=== PATIENT | female | born 1975 | race Caucasian/White ===

== ENCOUNTER 2024-08-23 05:52 | Inpatient (IN) ==
[2024-08-23 06:37] LABS: Rapid COVID-19 Molecular Undetected (Undetected)
[2024-08-23] MEDS ORDERED: ceFAZolin 1 GM in Dextrose 1 GM/50 ML BAG ONE (06:53)
[2024-08-23] MEDS ORDERED: Heparin 5000 UNITS/ML 1 mL VIAL ONE (06:53)
[2024-08-23] MEDS ORDERED: ceFAZolin 2 GM PREMIX 2 GM/50 ML BAG ONE (06:53)
[2024-08-23] MEDS ORDERED: Methylene Blue 1% (ANTIDOTE) 10 MG/ML 10 ML SDV VIAL IVPB ONE (07:10)
[2024-08-23] MEDS ORDERED: Bupivacaine 0.25% EPI 200,000 30 ML SDV ONE (07:10)
[2024-08-23] MEDS ORDERED: Midazolam 2 mg/2 ml VIAL 1 mg/ml 2 ml VIAL (2 mg) ONE (07:15)
[2024-08-23] MEDS ORDERED: fentaNYL 100 mcg/2 ml 50 MCG/ML VIAL ONE (07:16)
[2024-08-23] MEDS ORDERED: Rocuronium 50 mg VIAL 10 mg/ml 5 ml VIAL (50 mg) ONE (07:16)
[2024-08-23] MEDS ORDERED: fentaNYL 100 mcg/2 ml 50 MCG/ML VIAL IV PRN (07:51)
[2024-08-23] MEDS ORDERED: Naloxone 0.4 mg VIAL 0.4 mg/ml 1 ml VIAL IV PRN (07:51)
[2024-08-23] MEDS ORDERED: Metoclopramide 5 MG/ML VIAL (10 mg) IV PRN (07:51)
[2024-08-23] MEDS ORDERED: Ondansetron 4 mg VIAL 2 MG/ML 2 ml VIAL IV PRN (07:51)
[2024-08-23] MEDS ORDERED: Ondansetron 4 mg VIAL 2 MG/ML 2 ml VIAL ONE (07:55)
[2024-08-23] MEDS ORDERED: Dexamethasone IV 4 MG/ML VIAL 1 ml VIAL ONE (07:55)
[2024-08-23] MEDS ORDERED: HYDROmorphone 0.5 MG/0.5 ML SYRINGE ONE ×2 (08:13→10:14)
[2024-08-23] MEDS ORDERED: HYDROcodone/ACET. 7.5/325 LIQ 15 ML UDC PO PRN (10:41)
[2024-08-23] MEDS ORDERED: HYDROmorphone 1 MG/1 ML SYRINGE IV SLOW PU PRN (10:48)
[2024-08-23] MEDS: Buffered Lidocaine 1% SYRIN 1 ml INTRADERM ONE (11:27)
[2024-08-23] MEDS: Acetaminophen IV 1 GM/100ML 1,000 MG/100 ML BAG IV ONE (11:27)
[2024-08-23] MEDS: Lactated Ringers 1000 ml BAG 1,000 ML IV SCH ×2 (11:27→11:28)
[2024-08-23] MEDS: Scopolamine 1 mg/72hr PATCH TRANSDERM ONE (11:27)
[2024-08-23] MEDS: Ondansetron 4 mg VIAL 2 MG/ML 2 ml VIAL IV PRN (13:09)
[2024-08-23] MEDS: Heparin 5000 UNITS/ML 1 mL VIAL SUBCUT SCH (13:10)
[2024-08-23] MEDS: Famotidine IV 10 MG/ML 2 ml VIAL (20 mg) IV SLOW PU SCH (22:01)
[2024-08-24] MEDS: HYDROmorphone 0.5 MG/0.5 ML SYRINGE IV SLOW PU PRN (00:37)
[2024-08-24] MEDS: D5W 1/2 NS KCl 20 meq 1000 ml 1,000 ML IV SCH (11:42)
[2024-08-24 13:50] VITALS: BP 133/90
== END 2024-08-24 16:00 | disposition home or self-care (01) | DRG 403 ==
LOC: AA 05:52 → SSU 11:06
PROVIDERS: ADMIT Surgery; ATTEND Surgery